=== PATIENT | female | born 1950 | race Caucasian/White ===

== ENCOUNTER 2024-12-07 10:49 | Emergency (ER) | payer MEDICARE ==
[~2024-12-07] VITALS: Ht 165.1 cm; Wt 61.4 kg
[2024-12-07 10:54] VITALS: BP 136/70; PULSE 76; O2SAT 99
--- NOTE | 2024-12-07 11:38 | Physician Documentation ---
History of Present Illness ~ Chief Complaint: Back Pain Stated Complaint: BACK AND PELVIC PAIN Time Seen by MD: 11:26 HPI 74-year-old female presents to the ED with a complaint of lumbosacral pain after having a full 10 days ago. She was in a [place] and Hammock broke in she hit her sacral area. She thought she was getting better but now she has gotten worse in his difficulty ambulating. she denies any numbness tingling incontinence or fevers Medication Reconciliation Allergies: Coded Allergies: Penicillins (Verified Allergy, Unknown, 12/07/24) Review of Systems All Other Systems at this time: Reviewed and Negative ROS As stated above in the HPI, otherwise all systems are reviewed and negative. Physical Exam Physical Exam Vital Signs: Temperature: 98.5, Source: Temporal, Heart Rate: 76, Respiratory Rate: 16, BP: 136/70, Pulse Oximetry: 99, Weight: 61.360 Oxygen Flow Rate: 0 Physical Exam General: Alert, no apparent distress. HEENT: PERRL, EOMI, no injection, moist mucous membranes. Neck: Full range of motion. back: Tender to the right lumbosacral region via palpation Extremities: Normal range of motion, no deformity. Neurologic: Oriented x4. Psychiatric: Normal mood and affect. Skin: Normal color, warm and dry. No edema, no ecchymosis. Progress Results/Orders Results/Orders Orders - DAVIE CANCINO CLINICAL DOCUMENTATION CLERK Ct Lumbar Spine (12/07/24 11:35) Pelvis,Limited 1-2 Views (12/07/24 ) Completed Orders - DAVIE CANCINO CLINICAL DOCUMENTATION CLERK Ct Lumbar Spine (12/07/24 11:35) Pelvis,Limited 1-2 Views (12/07/24 ) Ketorolac Trometh 30mg/Ml Vial (Toradol (12/07/24 11:55) Medications Received in ER Medications (Trade) Dose Ordered Sig/Kimberly Route PRN Reason Start Time Stop Time Status Last Admin Dose Admin (Toradol inj. 30mg/ml) 15 mg ONCE ONCE IM 12/07/24 11:55 12/07/24 11:56 DC 12/07/24 12:22 15 MG Vital Signs 12/07/24 12/07/24 10:54 12:22 Temp 98.5 Pulse 76 Resp 16 16 B/P (MAP) 136/70 Pulse Ox 99 O2 Flow Rate 0 Medical Decision Making Findings Negative x-ray findings for patient's lumbar sacral x-ray. Suspect that this is musculoskeletal strain and/or soft tissue infection which can not exclude herniated disc Differential Dx:Considerations: Include: AAA, Aortic dissection, , Appendicitis, Bowel obstruction, Cholelithiasis, Cholangitis, DJD, Ectopic , Fracture, Hepatitis, HNP, Musculoskeletal pain, Pancreatitis, Pyelonephritis, Strain, Urinary obstruction, Urolithiasis, Ovarian torsion, Other Departure Disposition: HOME / SELF CARE / HOMELESS Impression: Primary Impression: Lumbosacral strain Additional Impressions: Low back pain Fall Condition: Stable Discharge Instructions: Acute Back Pain, Adult Referrals: NO PRIMARY CARE PROVIDER (PCP) Signature Scribe Signature: t Attestation: Scribed for Davie Cancino Greaser Operator by Davie Shen NP . 12/07/24 13:00 DAVIE CANCINO NP Dec 07, 2024 11:38
[2024-12-07 12:22] VITALS: RESP 16
[2024-12-07] MEDS: ketorolac trometh 30MG/ML vial 30 MG/ML VIAL IM ONE (12:22)
--- NOTE | 2024-12-07 12:29 | RADIOLOGY REPORT ---
DI PELVIS,LIMITED 1-2 VIEWS HISTORY: Fall TECHNICAL DATA: Frontal view was obtained of the pelvis. COMPARISON: None FINDINGS: No displaced fracture. Alignment not well evaluated on single frontal view. Bilateral hip joint space narrowing. IMPRESSION: 1. No displaced fracture.
[2024-12-07 13:23] VITALS: TEMP 98.5
--- NOTE | 2024-12-07 13:40 | RADIOLOGY REPORT ---
EXAM: CT CT LUMBAR SPINE HISTORY: fall, back pain COMPARISON: None CTDIvol 12.9 mGy, DLP 440 mGy*cm. TECHNIQUE: Multiple axial CT images of the spine were obtained using bone algorithm. Axial and sanchez l reformatting was done. Bone and soft tissue windows were reviewed. FINDINGS: No evidence of definite acute fracture, spinal dislocation, or significant appearing acute subluxatio n is seen. Multilevel degenerative changes of the spine. Degenerative disc space narrowing at L4-L5 and L5-S1. IMPRESSION: No definite CT evidence of acute fracture or dislocation of the bony lumbar spine.
== END 2024-12-07 13:25 | disposition home or self-care (01) ==
LOC: ER 10:50
DX: S39.012A Strain of muscle, fascia and tendon of lower back, initial encounter (principal); R26.2 Difficulty in walking, not elsewhere classified; Z88.0 Allergy status to penicillin; W08.XXXA Fall from other furniture, initial encounter; Y93.89 Activity, other specified; Y92.89 Other specified places as the place of occurrence of the external cause; Y99.8 Other external cause status
CPT/HCPCS: 72131; 72170; 96372; 99285; J1885